=== PATIENT | male | born 1945 | race Caucasian/White ===

== ENCOUNTER 2019-02-09 11:31 | Emergency (ER) | payer OTHER ==
[~2019-02-09] VITALS: Ht 182.9 cm; Wt 112.5 kg
[2019-02-09] MEDS ORDERED: HYZAAR 50-12.51 EACH (11:56)
[2019-02-09] MEDS ORDERED: LIPITOR20 MG (11:56)
[2019-02-09] MEDS ORDERED: ASPIR 8181 MG (11:57)
[2019-02-09] MEDS ORDERED: AMOX-CLAV 875-1 EACH PO (16:23)
[2019-02-09] MEDS ORDERED: MEDROLPACK PO (16:23)
[2019-02-09] MEDS ORDERED: CLARITIN10 MG PO (16:23)
== END 2019-02-09 17:14 | disposition home or self-care (01) ==
LOC: ER 11:31
DX: T78.49XA Other allergy, initial encounter (principal); R60.0 Localized edema; M54.2 Cervicalgia; R21 Rash and other nonspecific skin eruption; X58.XXXA Exposure to other specified factors, initial encounter